=== PATIENT | male | born 1970 | race Two or more races ===

== ENCOUNTER 2023-10-29 20:17 | Emergency (ER) | payer BC ==
[2023-10-29 20:23] VITALS: BP 158/87; PULSE 67; RESP 18; TEMP 98.5; BMI 24.4
[2023-10-29 22:07] LABS: EPI CELLS 14 /uL (0-25.1); HYALINE CASTS 0 /uL (0-3.1); URINE APPEARANCE CLEAR; URINE BACTERIA 5 /uL (0-1359); URINE BILIRUBIN NEGATIVE (NEGATIVE); URINE COLOR YELLOW; URINE GLUCOSE (UA) NEGATIVE (NEGATIVE); URINE KETONE TRACE (NEGATIVE); URINE LEUK ESTERASE TRACE (NEGATIVE); URINE NITRITE NEGATIVE (NEGATIVE); URINE PROTEIN 1+ (NEGATIVE); URINE RBC 1278 /uL (0-23.9); URINE WBC 13 /uL (0-25.8)
== END 2023-10-30 02:10 | disposition home or self-care (01) ==
LOC: JER 20:17
DX: R10.32 Left lower quadrant pain (principal); R31.29 Other microscopic hematuria
CPT/HCPCS: 36415; 76870-TC; 81003; 87086; 87491; 87591; 99284-25